=== PATIENT | female | born 1975 | race Hispanic/Latino ===

== ENCOUNTER → 2023-01-25 | Day surgery (SDC) | payer OTHER ==
[~2023-01-25] MED LIST: BACTRIM DS TAB1 EACH PO; CRESTOR10 MG PO; FENTANYL CITRATE/PF 100MCG/2 ML INJ ONE; LACTATED RINGER'S 1,000 ML ONE; LIDOCAINE HCL 2% LOCAL INJ 5 ML SDV VIAL INJ ONE; MIDAZOLAM HCL 2 MG/2 ML VIAL ONE; PROPOFOL IV EMULSION 10 MG/ML 20 ML VIAL ONE
[2023-01-25 15:43] VITALS: BP 126/67; PULSE 74; RESP 18; O2SAT 98
== END | disposition home or self-care (01) ==
LOC: OR 13:14
PROVIDERS: ATTEND Internal Medicine Gastroenterology
DX: K29.70 Gastritis, unspecified, without bleeding (principal); Z86.010 Personal history of colon polyps; K20.90 Esophagitis, unspecified without bleeding; K21.9 Gastro-esophageal reflux disease without esophagitis; K64.8 Other hemorrhoids; K59.00 Constipation, unspecified; Z71.3 Dietary counseling and surveillance; G89.29 Other chronic pain; M06.9 Rheumatoid arthritis, unspecified; E11.9 Type 2 diabetes mellitus without complications; E78.00 Pure hypercholesterolemia, unspecified; R03.0 Elevated blood-pressure reading, without diagnosis of hypertension; Z79.84 Long term (current) use of oral hypoglycemic drugs; Z68.30 Body mass index [BMI] 30.0-30.9, adult
CPT/HCPCS: 36415; 43239; 45378; 81025; 82948; C9113; J2001; J2250; J2704; J3010; J7121